=== PATIENT | male | born 2005 | race American Indian/Alaskan Native ===

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

== ENCOUNTER 2025-04-07 23:58 | Emergency (ER) | payer MEDICAID ==
[2025-04-08 00:08] VITALS: BP 144/66; PULSE 72
[2025-04-08 01:01] LABS: HEMATOCRIT 40.9 % (40.0-54.0); HEMOGLOBIN 13.9 g/dL (14.0-18.0); MEAN CORPUSCULAR VOLUME 85.2 fL (80-100); PLATELET COUNT,PLT 414 10^3/uL (150-450); WHITE BLOOD CELL COUNT,WBC 9.5 10^3/uL (5.0-10.0)
[2025-04-08 01:05] LABS: BASOPHILS PERCENT AUTO 0.4 % (0.0-1.0); EOSINOPHILS PERCENT AUTO 3.3 % (1.0-3.0); LYMPHOCYTES PERCENT AUTO 27.6 % (20.5-50.1); MONOCYTES PERCENT AUTO 8.8 % (2-8); NEUTROPHILS PERCENT AUTO 59.9 % (42.2-75.2)
[2025-04-08] MEDS: Ketorolac 30 MG/ML SDV IM ONE (01:11)
[2025-04-08] MEDS: Doxycycline Monohydrate 100 MG Cap PO ONE (01:12)
[2025-04-08] MEDS: Bacitracin Oint 1 GM U/D Packet TOP ONE (01:12)
[2025-04-08 01:16] LABS: A/G RATIO 0.9; ALANINE AMINOTRANSFERASE,ALT 39 U/L (16-63); ALBUMIN 3.5 g/dL (3.4-5.0); ALKALINE PHOSPHATASE 119 U/L (46-116); ANION GAP 8.3 mEq/L (7-13); ASPARTATE AMNIOTRANSFERASE,AST 21 U/L (15-37); BILIRUBIN TOTAL 0.4 mg/dL (0.2-1.0); BLOOD UREA NITROGEN,BUN 15 mg/dL (7-18); BUN/CREATININE RATIO 11.5 (No establ ref range); CALCIUM 9.3 mg/dL (8.5-10.1); CARBON DIOXIDE,CO2 30 mmol/L (21-32); CHLORIDE,CL 107 mmol/L (98-107); ESTIMATED GFR 81 mL/min (>=60); GLUCOSE RANDOM 113 mg/dL (70-99); POTASSIUM,K 4.3 mmol/L (3.5-5.1); PROTEIN TOTAL,TP 7.4 g/dL (6.4-8.2); SODIUM,NA 141 mmol/L (136-145)
[2025-04-08 01:19] LABS: SEG NEUTROPHILS PERCENT MAN 62 % (42-75)
[2025-04-08 01:20] LABS: EOSINOPHILS PERCENT MAN 3 % (1-3); LYMPHOCYTES PERCENT MAN 30 % (20-50); MONOCYTES PERCENT MAN 5 % (2-8)
== END 2025-04-08 01:57 | disposition home or self-care (01) ==
LOC: DL.ED 23:58
DX: L03.116 Cellulitis of left lower limb (principal); Z91.030 Bee allergy status
CPT/HCPCS: 36415; 80053; 85025; 96372; 99283; A9270-GY; J1885